=== PATIENT | male | born 1960 | race Caucasian/White ===

== ENCOUNTER → 2018-10-30 | Outpatient (CLI) | payer OTHER ==
--- NOTE | 2018-11-01 07:31 | ECHO ---
DATE OF PROCEDURE: 10/30/2018 REFERRING PROVIDER: Elvie TOUSSAINT. PATIENT LOCATION: Outpatient. REASON FOR THE ECHOCARDIOGRAM: Chest pain, unspecified. 2D MEASUREMENT: IVS - 1.1 cm LV - 5.1 cm LVPW - 1.1 cm LA - 4.3 cm Aorta - 3.4 cm IVC - 1.9 cm DOPPLER MEASUREMENTS: Peak velocity across the aortic valve - 1.1 m/s Peak velocity across the LVOT - 0.62 m/s Mitral E 0.55, Mitral A - 0.66 with a ratio of 0.8 Maximum tricuspid valve velocity - 2.1 m/s 2D COMMENTS: Normal left ventricular size, wall thickness, and normal global left ventricular systolic function. The estimated global left ventricular systolic ejection fraction is 60-65%. Mildly enlarge left atrium. The right atrium and the right ventricle appear to be mildly enlarged in limited views. The atrial septum appeared to be normal without evidence of defect or shunt. Normal aortic root. No pericardial effusion seen. The aortic valve, mitral valve, tricuspid valve, and pulmonic valve appear to be normal. The approximate pulmonary artery wedges were not well visualized. The inferior venal cava was in size, central venous pressure might be normal. Doppler: Only trace mitral regurgitation and mild tricuspid regurgitation detected. Abnormal relaxation pattern was noted across the mitral valve leaflets as well as the mitral valve annulus consistent with delayed relaxation. IMPRESSION: 1. Normal global left ventricular systolic function. There are some features of left ventricular diastolic dysfunction manifested by abnormal relaxation. 2. Mildly enlarged left atrium with trace mitral regurgitation. 3. The right atrium and the right ventricle appear to be mildly enlarged in limited views.
== END ==
LOC: M CARPUL 10:16
PROVIDERS: ATTEND Nurse Practitioner Family
DX: I51.7 Cardiomegaly (principal)

== ENCOUNTER → 2020-05-30 | Outpatient (CLI) | payer SELFPAY | LOC: M LABSMTC 11:31 | PROVIDERS: ATTEND Pediatrics | DX: Z20.828 Contact with and (suspected) exposure to other viral communicable diseases (principal) ==